=== PATIENT | female | born 1960 | race Caucasian/White ===

== ENCOUNTER → 2016-11-03 | Outpatient (CLI) | payer BC ==
--- NOTE | 2016-11-03 10:53 | MM ---
Reason for exam: screening (asymptomatic). Last mammogram was performed 9 months ago. History: Patient is postmenopausal and is nulliparous. Family history of breast cancer in mother and breast cancer in aunt. Benign stereotactic core biopsy of the left breast, November 16, 2003. Benign stereotactic core biopsy of the right breast, February 21, 2002. Took unspecified hormones for 10 years. Physical Findings: A clinical breast exam by your physician is recommended on an annual basis and results should be correlated with mammographic findings. MG Screening Mammo w CAD Bilateral CC and MLO view(s) were taken. Prior study comparison: August 08, 2015, bilateral MG screening mammo w CAD. The breast tissue is heterogeneously dense. This may lower the sensitivity of mammography. Previous mammotome biopsy within the right breast. There is chronic nodularity in the right breast. There is no discrete abnormality. ASSESSMENT: Benign, BI-RAD 2 RECOMMENDATION: Routine screening mammogram of both breasts in 1 year.
== END | disposition home or self-care (01) ==
LOC: RADMAMWWP 09:04
PROVIDERS: ATTEND Obstetrics & Gynecology
DX: Z12.31 Encounter for screening mammogram for malignant neoplasm of breast (principal); Z80.3 Family history of malignant neoplasm of breast

== ENCOUNTER → 2017-04-21 | Outpatient (CLI) | payer BC ==
--- NOTE | 2017-04-21 12:20 | BD ---
EXAMINATION TYPE: MG DEXA axial skeleton. DATE OF EXAM: 04/21/2017 COMPARISON: July 03, 2014 DEXA study CLINICAL HISTORY: osteoporosis Height: 5 '4 1/2 Weight: 183 FRAX RISK QUESTIONS: Alcohol (3 or more units per day): no Family History (Parent hip fracture): no Glucocorticoids (More than 3mos): no (Ex: prednisone, prednisolone, methylprednisolone, dexamethasone, and hydrocortisone). History of Fracture in Adulthood: no Secondary Osteoporosis: 1. Type 1 Diabetes: no 2. Hyperthyroidism: no 3. Menopause before 45: no 4. Malnutrition: no 5. Chronic liver disease: no Rheumatoid Arthritis: no Current Tobacco Use: no RISK FACTORS HISTORY OF: Family History of Osteoporosis: Diet low in dairy products/other sources of calcium: Postmenopausal woman: MEDICATIONS: Additional Medications: blood pressure, zoloft Additional History: EXAM MEASUREMENTS: Bone mineral densitometry was performed using the [employer] System. Bone mineral density as measured about the Lumbar spine is: ----- L1-L4(G/cm2): 1.264 T Score Values are as follows: ----- L2: 0.9 ----- L3: 0.9 ----- L4: 0.7 ----- L1-L4:0.7 Bone mineral density has: Increased 3.0% since study of: 07/03/2014 Bone mineral density about the R hip (g/cm2): 0.911 Bone mineral density about the L hip (g/cm2): 0.854 T Score values are as follows: -----R Neck: -0.9 -----L Neck: -1.3 -----R Total: 0.2 -----L Total: 0.3 Bone mineral density has: Decreased -1.7% since study of: 07/03/2014 IMPRESSION: Osteopenia (T Score between -2.5 and -1 as noted by T score values: At the femoral neck level in the left hip persists. Bone density fairly stable from prior. There remains slightly increased risk of fr acture and the patient may be considered for treatment. Re-Screen 2-5 years. NOTE: T-SCORE=SD OF THE YOUNG ADULT MEAN.
== END | disposition home or self-care (01) ==
LOC: RADBDWWP 09:14
PROVIDERS: ATTEND Obstetrics & Gynecology
DX: M85.852 Other specified disorders of bone density and structure, left thigh (principal)
CPT/HCPCS: 77080

== ENCOUNTER → 2017-12-16 | Outpatient (CLI) | payer BC ==
--- NOTE | 2017-12-21 13:48 | MM ---
Reason for exam: screening (asymptomatic). Last mammogram was performed 1 year and 1 month ago. History: Patient is postmenopausal and is nulliparous. Family history of breast cancer in mother and breast cancer in aunt. Benign stereotactic core biopsy of the left breast, November 16, 2003. Benign stereotactic core biopsy of the right breast, February 21, 2002. Took unspecified hormones for 10 years. Physical Findings: A clinical breast exam by your physician is recommended on an annual basis and results should be correlated with mammographic findings. MG Screening Mammo w CAD Bilateral CC and MLO view(s) were taken. Prior study comparison: November 03, 2016, bilateral MG screening mammo w CAD. February 12, 2016, left breast MG diagnostic mammo LT w CAD. The breast tissue is heterogeneously dense. This may lower the sensitivity of mammography. No suspicious abnormality. Bilateral biopsy markers noted. No significant changes when compared with prior studies. ASSESSMENT: Negative, BI-RAD 1 RECOMMENDATION: Routine screening mammogram of both breasts in 1 year.
== END | disposition home or self-care (01) ==
LOC: RADMAMWWP 10:07
PROVIDERS: ATTEND Family Medicine
DX: Z12.31 Encounter for screening mammogram for malignant neoplasm of breast (principal)
CPT/HCPCS: 77067

== ENCOUNTER → 2019-01-02 | Outpatient (CLI) | payer BC ==
--- NOTE | 2019-01-04 09:07 | MM ---
Reason for exam: screening (asymptomatic). Last mammogram was performed 1 year and 1 month ago. History: Patient is postmenopausal and is nulliparous. Family history of breast cancer in mother and breast cancer in aunt. Benign stereotactic core biopsy of the left breast, November 16, 2003. Benign stereotactic core biopsy of the right breast, February 21, 2002. Took unspecified hormones for 10 years. Physical Findings: A clinical breast exam by your physician is recommended on an annual basis and results should be correlated with mammographic findings. MG Screening Mammo w CAD Bilateral CC and MLO view(s) were taken. Prior study comparison: December 16, 2017, bilateral MG screening mammo w CAD. November 03, 2016, bilateral MG screening mammo w CAD. The breast tissue is heterogeneously dense. This may lower the sensitivity of mammography. Finding: There are typically benign round calcifications in both breasts. Bilateral previous mammotome biopsies. No discrete abnormality. ASSESSMENT: Benign, BI-RAD 2 RECOMMENDATION: Routine screening mammogram of both breasts in 1 year.
== END | disposition home or self-care (01) ==
LOC: RADMAMWWP 09:18
PROVIDERS: ATTEND Family Medicine
DX: Z12.31 Encounter for screening mammogram for malignant neoplasm of breast (principal)
CPT/HCPCS: 77067

== ENCOUNTER → 2020-02-27 | Outpatient (CLI) | payer BC ==
--- NOTE | 2020-02-27 14:45 | BD ---
EXAMINATION TYPE: Axial Bone Density DATE OF EXAM: 02/27/2020 COMPARISON: 04/21/2017 CLINICAL HISTORY: Height: 64 IN Weight: 190 LBS FRAX RISK QUESTIONS: Secondary Osteoporosis: 3. Menopause before 45: TOTAL HYST AGE 39 RISK FACTORS HISTORY OF: Family History of Osteoporosis: YES MOTHER Active: YES Postmenopausal woman: TOTAL HYST AGE 39 MEDICATIONS: Additional Medications: CALCIUM, VIT D, ZOLOFT, HIGH BLOOD PRESSURE MEDS EXAM MEASUREMENTS: Bone mineral densitometry was performed using the [employer] System. Bone mineral density as measured about the Lumbar spine is: ----- L1-L4(G/cm2): 1.258 T Score Values are as follows: ----- L2: 0.4 ----- L3: 1.1 ----- L4: 0.5 ----- L1-L4: 0.6 Bone mineral density has: Decreased -1.9% since study of: 04/21/2017 Bone mineral density about the R hip (g/cm2): 0.882 Bone mineral density about the L hip (g/cm2): 0.829 T Score values are as follows: -----R Neck: -1.1 -----L Neck: -1.5 -----R Total: 0.2 -----L Total: -0.1 Bone mineral density has: Decreased -2.0% since study of: 04/21/2017 IMPRESSION: No osteoporosis or osteopenia. NOTE: T-SCORE=SD OF THE YOUNG ADULT MEAN.
--- NOTE | 2020-03-04 12:01 | MM ---
Reason for exam: screening (asymptomatic). Last mammogram was performed 1 year and 2 months ago. History: Patient is postmenopausal and is nulliparous. Family history of breast cancer in mother and breast cancer in aunt. Benign stereotactic core biopsy of the left breast, November 16, 2003. Benign stereotactic core biopsy of the right breast, February 21, 2002. Took unspecified hormones for 10 years. Physical Findings: A clinical breast exam by your physician is recommended on an annual basis and results should be correlated with mammographic findings. MG Screening Mammo w CAD Bilateral CC and MLO view(s) were taken. Prior study comparison: January 02, 2019, bilateral MG screening mammo w CAD. December 16, 2017, bilateral MG screening mammo w CAD. The breast tissue is heterogeneously dense. This may lower the sensitivity of mammography. Previous mammotome biopsy in the right and left breast. There is no discrete abnormality. ASSESSMENT: Benign, BI-RAD 2 RECOMMENDATION: Routine screening mammogram of both breasts in 1 year.
== END | disposition home or self-care (01) ==
LOC: RADMAMWWP 12:46
PROVIDERS: ATTEND Family Medicine
DX: Z12.31 Encounter for screening mammogram for malignant neoplasm of breast (principal); Z78.0 Asymptomatic menopausal state
CPT/HCPCS: 77067; 77080

== ENCOUNTER → 2021-01-29 | Outpatient (CLI) | payer BC | END | disposition home or self-care (01) | CPT/HCPCS: 72100; 73502; 74018 ==

== ENCOUNTER → 2021-03-06 | Outpatient (CLI) | payer BC ==
--- NOTE | 2021-03-10 10:04 | MM ---
Reason for exam: screening (asymptomatic). Last mammogram was performed 1 year ago. History: Patient is postmenopausal and is nulliparous. Family history of breast cancer in mother and breast cancer in aunt. Benign stereotactic core biopsy of the left breast, November 16, 2003. Benign stereotactic core biopsy of the right breast, February 21, 2002. Took unspecified hormones for 10 years. Physical Findings: A clinical breast exam by your physician is recommended on an annual basis and results should be correlated with mammographic findings. MG Screening Mammo w CAD Bilateral CC and MLO view(s) were taken. Prior study comparison: February 27, 2020, bilateral MG screening mammo w CAD. January 02, 2019, bilateral MG screening mammo w CAD. Previous mammotome biopsy in the right breast. No significant changes when compared with prior studies. ASSESSMENT: Benign, BI-RAD 2 RECOMMENDATION: Routine screening mammogram of both breasts in 1 year.
== END | disposition home or self-care (01) ==
LOC: RADMAMWWP 16:05
PROVIDERS: ATTEND Family Medicine
DX: Z12.31 Encounter for screening mammogram for malignant neoplasm of breast (principal); Z80.3 Family history of malignant neoplasm of breast
CPT/HCPCS: 77067

== ENCOUNTER → 2021-06-04 | Outpatient (CLI) | payer BC ==
--- NOTE | 2021-06-04 11:53 | XR ---
EXAMINATION TYPE: XR shoulder complete LT DATE OF EXAM: 06/04/2021 COMPARISON: NONE HISTORY: Pain TECHNIQUE: Three views are submitted. FINDINGS: The osseous structures are intact. There is no acute fracture or dislocation. AC joint arthropathy. IMPRESSION: 1. No acute fracture. There is AC joint arthropathy, if there is concern for rotator cuff injury kareem elate with MRI.
== END | disposition home or self-care (01) ==
LOC: RADXRMAIN 11:21
PROVIDERS: ATTEND Family Medicine
DX: M25.512 Pain in left shoulder (principal)

== ENCOUNTER → 2022-03-10 | Outpatient (CLI) | payer BC ==
--- NOTE | 2022-03-11 08:33 | MM ---
Reason for Exam: Screening (asymptomatic). Last screening mammogram was performed 12 month(s) ago. Patient History: Menarche at age 11. Patient has no children. Left ovary removed at age 44. Right ovary removed at age 44. Hysterectomy at age 44. Postmenopausal. 11/16/2003, Benign Stereotactic Core Biopsy on the left side. 02/21/2002, Benign Stereotactic Core Biopsy on the right side. Maternal aunt had breast cancer at or over age 50. Mother had breast cancer, age 52. Risk Values: Alana 5 year model risk: 4.6%. NCI Lifetime model risk: 18.5%. Prior Study Comparison: 01/02/2019 Bilateral Screening Mammogram, [facility]. 02/27/2020 Bilateral Screening Mammogram, [facility]. 03/06/2021 Bilateral Screening Mammogram, [facility]. Tissue Density: The breast tissue is heterogeneously dense. This may lower the sensitivity of mammography. Findings: Analyzed By CAD. There is no suspicious group of microcalcifications or new suspicious mass in either breast. Biopsy clips in both breasts. No significant change from prior exams. Overall Assessment: Benign, BI-RAD 2 Management: Screening Mammogram of both breasts in 1 year. A clinical breast exam by your physician is recommended on an annual basis and results should be correlated with mammographic findings. Electronically signed and approved by: Panda Olivera D.O.
== END | disposition home or self-care (01) ==
LOC: RADMAMWWP 11:27
PROVIDERS: ATTEND Family Medicine
DX: Z12.31 Encounter for screening mammogram for malignant neoplasm of breast (principal); Z80.3 Family history of malignant neoplasm of breast
CPT/HCPCS: 77067

== ENCOUNTER → 2023-04-06 | Outpatient (CLI) | payer BC ==
--- NOTE | 2023-04-07 15:45 | MM ---
Reason for Exam: Screening (asymptomatic). Last mammogram was performed 1 year(s) and 1 month(s) ago. Patient History: Menarche at age 11. Patient has no children. Left ovary removed at age 44. Right ovary removed at age 44. Hysterectomy at age 44. Postmenopausal. 11/16/2003, Benign Stereotactic Core Biopsy on the left side. 02/21/2002, Benign Stereotactic Core Biopsy on the right side. Maternal aunt had breast cancer at or over age 50. Mother had breast cancer, age 52. Risk Values: Alana 5 year model risk: 4.7%. NCI Lifetime model risk: 18.0%. Prior Study Comparison: 02/27/2020 Bilateral Screening Mammogram, [facility]. 03/06/2021 Bilateral Screening Mammogram, [facility]. 03/10/2022 Bilateral MG screening mammo w CAD, [facility]. Tissue Density: The breast tissue is heterogeneously dense. This may lower the sensitivity of mammography. Findings: Analyzed By CAD. Pattern appears stable. Focal asymmetry is in the 12:00 middle position left breast, unchanged from comparison. Markers within the bilateral breasts. No significant changes are evident. No suspicious groups of microcalcifications, spiculated or lobular masses, architectural distortion or other secondary signs of malignancy are mammographically apparent. Overall Assessment: Benign, BI-RAD 2 Management: Screening Mammogram of both breasts in 1 year. A negative mammogram report should not preclude additional follow up of suspicious palpable abnormalities. Patient should continue monthly self breast exam. A clinical breast exam by your physician is recommended on an annual basis and results should be correlated with mammographic findings. Electronically signed and approved by: Gigi Garrison D.O. Radiologis
== END | disposition home or self-care (01) ==
LOC: RADMAMWWP 11:11
PROVIDERS: ATTEND Family Medicine
DX: Z12.31 Encounter for screening mammogram for malignant neoplasm of breast (principal); Z78.0 Asymptomatic menopausal state; Z80.3 Family history of malignant neoplasm of breast
CPT/HCPCS: 77067

== ENCOUNTER → 2024-04-10 | Outpatient (CLI) | payer MEDICARE, OTHER ==
--- NOTE | 2024-04-11 23:25 | BD ---
EXAMINATION TYPE: Axial Bone Density DATE OF EXAM: 04/10/2024 CLINICAL HISTORY: 64 years old Female. ICD-10 CODE: Z78.0 ASYMPTOMATIC MENOPAUSAL STA Height: 5 ft 4 in Weight: 200 FRAX RISK QUESTIONS: Alcohol (3 or more units per day): no Family History (Parent hip fracture): no Glucocorticoids (More than 3mos): no (Ex: prednisone, prednisolone, methylprednisolone, dexamethasone, and hydrocortisone). History of Fracture in Adulthood: no Secondary Osteoporosis: 1. Type 1 Diabetes: no 2. Hyperthyroidism: no 3. Menopause before 45: no 4. Malnutrition: no 5. Chronic liver disease: no Rheumatoid Arthritis: no Current Tobacco Use: no RISK FACTORS HISTORY OF: Surgery to Spine/Hip(right/left)/Wrist (right/left): no MEDICATIONS: Thyroid Medications: none Osteoporosis Medications: none EXAM MEASUREMENTS: Bone mineral densitometry was performed using the [employer] System. Bone mineral density as measured about the Lumbar spine is: ----- L1-L4(G/cm2): 1.296 T Score Values are as follows: ----- L1: 0.3 ----- L2: 0.8 ----- L3: 1.7 ----- L4: 0.9 ----- L1-L4: 1.0 Z Score Values are as follows: ----- L1: 1.0 ----- L2: 1.5 ----- L3: 2.4 ----- L4: 1.7 ----- L1-L4: 1.7 Bone mineral density has: increased 3.0 % since of: 2019 Bone mineral density about the R hip (g/cm2): 0.906 Bone mineral density about the L hip (g/cm2): 0.837 T Score values are as follows: -----R Neck: -0.9 -----L Neck: -1.4 -----R Total: 0.2 -----L Total: 0.0 Z Score values are as follows: -----R Neck: 0.0 -----L Neck: -0.5 -----R Total: 0.8 -----L Total: 0.5 Bone mineral density has: increased 1.1 % since study of: 2020 FRAX%s: The graph provided illustrates a 8.2 % chance for a major osteoporotic fx and a 0.8 % chance for the hips probability for fx in 10 years time. IMPRESSION: Normal (Values between +1 and -1 indicate normal bone mass). Consider repeating this study in 5 year s or sooner if there is some new clinical indication. NOTE: T-SCORE=SD OF THE YOUNG ADULT MEAN. [facility], , 04/11/2024 11:23 PM
--- NOTE | 2024-04-12 22:54 | MM ---
Reason for Exam: Screening (asymptomatic). Last screening mammogram was performed 12 month(s) ago. Patient History: Menarche at age 11. Patient has no children. Left ovary removed at age 44. Right ovary removed at age 44. Hysterectomy at age 44. Postmenopausal. 11/16/2003, Benign Stereotactic Core Biopsy on the left side. 02/21/2002, Benign Stereotactic Core Biopsy on the right side. Maternal aunt had breast cancer at or over age 50. Maternal cousin had breast cancer. Mother had breast cancer, age 52. Risk Values: Alana 5 year model risk: 4.9%. NCI Lifetime model risk: 17.4%. Prior Study Comparison: 03/06/2021 Bilateral Screening Mammogram, [facility]. 03/10/2022 Bilateral MG screening mammo w CAD, [facility]. 04/06/2023 Bilateral MG screening mammo w CAD, [facility]. Tissue Density: The breasts are heterogeneously dense, which may obscure small masses. Findings: Analyzed By CAD. The pattern is symmetrical. No significant interval change is evident. Benign calcifications right breast. A core markers within each breast. No suspicious groups of microcalcifications, spiculated or lobular masses, architectural distortion or other secondary signs of malignancy are mammographically apparent. Overall Assessment: Benign, BI-RAD 2 Management: Screening Mammogram of both breasts in 1 year. A negative mammogram report should not preclude additional follow up of suspicious palpable abnormalities. Patient should continue monthly self breast exam. A clinical breast exam by your physician is recommended on an annual basis and results should be correlated with mammographic findings. Note on Alana scores and lifetime risk: 1. A Alana score greater than 3% is considered moderate risk. If this is the case, consider specialist referral to assess eligibility for a risk reducing agent. 2. If overall lifetime risk for the development of breast cancer is 20% or higher, the patient may qualify for future screening with alternating mammogram and breast MRI. [facility], , 04/12/2024 10:51 PM. Electronically signed and approved by: Gigi Garrison D.O. Radiologis
== END | disposition home or self-care (01) ==
LOC: RADMAMWWP 12:48
PROVIDERS: ATTEND Family Medicine
DX: Z12.31 Encounter for screening mammogram for malignant neoplasm of breast (principal); R92.333 Mammographic heterogeneous density, bilateral breasts; Z78.0 Asymptomatic menopausal state; Z80.3 Family history of malignant neoplasm of breast
CPT/HCPCS: 77063; 77067; 77080